=== PATIENT | male | born 1945 | race Caucasian/White ===

== ENCOUNTER 2018-12-08 05:45 | Inpatient (IN) | payer OTHER, MEDICAID ==
[~2018-12-08] VITALS: Ht 167.6 cm; Wt 71.7 kg
[2018-12-08] MEDS ORDERED: ONDANSETRON HCL 4MG/2ML INJ IV ONE (07:15)
[2018-12-08] MEDS ORDERED: MORPHINE SULFATE 4 MG/ML CPJ (NOT FOR IM USE) IV ONE ×2 (07:15→10:00)
[2018-12-08 07:23] LABS: BASOPHILS % 0.4 % (0.0-2.0); EOSINOPHILS % 2.8 % (0.0-5.0); HEMATOCRIT. 51.8 % (42.0-52.0); HEMOGLOBIN. 17.2 g/dL (14.0-18.0); LYMPHOCYTES % 8.9 % (20.0-50.0); MEAN CORPUSCULAR HEMOGLOBIN 29.9 pg (28.0-32.0); MEAN CORPUSCULAR VOLUME 90.2 fL (80.0-94.0); MEAN PLATELET VOLUME 7.8 fl (7.4-10.4); NEUTROPHILS % 78.9 % (40.0-76.0); PLATELET 353 x1000/uL (130-400); RED BLOOD CELL COUNT 5.75 mill/uL (4.7-6.1); RED CELL DISTRIBUTION WIDTH 14.5 % (11.6-14.6)
[2018-12-08 07:30] LABS: CHLORIDE 105 mEq/L (98-107)
[2018-12-08 10:13] LABS: CLARITY URINE CLEAR (CLEAR); COLOR URINE YELLOW (YELLOW); KETONES URINE NEGATIVE (NEGATIVE); LEUKOCYTE ESTERASE URINE TRACE (NEGATIVE); NITRITE URINE NEGATIVE (NEGATIVE); OCCULT BLOOD URINE NEGATIVE (NEGATIVE); PH URINE 5.5 (4.5-8.0); PROTEIN URINE NEGATIVE (NEGATIVE); SPECIFIC GRAVITY URINE 1.019 (1.005-1.030)
[2018-12-08] MEDS ORDERED: CLONIDINE 0.1MG TABLET PO PRN (11:00)
[2018-12-08] MEDS ORDERED: ACETAMINOPHEN 325MG TABLET PO PRN (11:00)
[2018-12-08] MEDS: SODIUM CHLORIDE 0.9% 1,000 ML IV SCH ×2 (12:12→22:31)
[2018-12-08] MEDS: MORPHINE SULFATE 2 MG/ML CPJ (NOT FOR IM USE) IV PRN (13:29)
[2018-12-08] MEDS ORDERED: SULFACETAMIDE SODIUM 10% OPHTH DROPS 15ML RIGHTEYE SCH (17:00)
[2018-12-08] MEDS: HYDROCODONE/ACETAMINOPHEN 5/325MG TABLET PO PRN (17:27)
[2018-12-08] MEDS: ONDANSETRON HCL 4MG/2ML INJ IV PRN (17:28)
[2018-12-08] MEDS ORDERED: LEVOFLOXACIN 500MG PREMIX 100 ML IV NR (17:30)
[2018-12-08] MEDS ORDERED: METRONIDAZOLE 500 MG PREMIX 100 ML IV NR (17:30)
[2018-12-08 21:00] VITALS: BP 149/83
[2018-12-08] MEDS ORDERED: AMLODIPINE 5MG TABLET PO SCH (21:00)
[2018-12-08] MEDS: CARVEDILOL 6.25 MG TABLET PO SCH (22:29)
[2018-12-08] MEDS: AMLODIPINE 2.5MG TABLET PO SCH (22:29)
[2018-12-08] MEDS: METRONIDAZOLE 500 MG PREMIX 100 ML IV SCH (22:30)
[2018-12-08] MEDS: QUETIAPINE FUMARATE 50MG TABLET PO SCH (22:30)
[2018-12-08] MEDS: SULFACETAMIDE SODIUM 10% OPHTH DROPS 15ML RIGHTEYE SCH (22:31)
[2018-12-09] VITALS: BP 125/67
[2018-12-09] MEDS: MORPHINE SULFATE 2 MG/ML CPJ (NOT FOR IM USE) IV PRN ×2 (00:44→05:10)
[2018-12-09 04:00] VITALS: BP 126/66
[2018-12-09] MEDS: METRONIDAZOLE 500 MG PREMIX 100 ML IV SCH ×2 (05:51→14:23)
[2018-12-09 06:58] LABS: CHLORIDE 104 mEq/L (98-107)
[2018-12-09 07:08] LABS: PHOSPHORUS 2.9 mg/dL (2.5-4.9)
[2018-12-09 07:17] LABS: BASOPHILS % 0.5 % (0.0-2.0); EOSINOPHILS % 2.6 % (0.0-5.0); HEMATOCRIT. 43.1 % (42.0-52.0); HEMOGLOBIN. 14.7 g/dL (14.0-18.0); LYMPHOCYTES % 11.1 % (20.0-50.0); MEAN CORPUSCULAR HEMOGLOBIN 30.6 pg (28.0-32.0); MEAN CORPUSCULAR VOLUME 89.6 fL (80.0-94.0); MEAN PLATELET VOLUME 8.1 fl (7.4-10.4); MONOCYTES % 11.7 % (2.0-8.0); NEUTROPHILS % 74.1 % (40.0-76.0); PLATELET 284 x1000/uL (130-400); RED BLOOD CELL COUNT 4.81 mill/uL (4.7-6.1)
[2018-12-09 08:00] VITALS: BP 154/67
[2018-12-09] MEDS: AMIODARONE HCL 200 MG TABLET PO SCH (08:25)
[2018-12-09] MEDS: HYDROCODONE/ACETAMINOPHEN 5/325MG TABLET PO PRN ×2 (08:25→18:25)
[2018-12-09] MEDS: AMLODIPINE 2.5MG TABLET PO SCH ×2 (08:25→21:01)
[2018-12-09] MEDS: CARVEDILOL 6.25 MG TABLET PO SCH ×2 (08:25→21:01)
[2018-12-09] MEDS: SULFACETAMIDE SODIUM 10% OPHTH DROPS 15ML RIGHTEYE SCH ×4 (08:26→21:02)
[2018-12-09 12:00] VITALS: BP 107/62
[2018-12-09] MEDS: LEVOFLOXACIN 250MG PREMIX 50 ML IV SCH (13:09)
[2018-12-09] MEDS: SODIUM CHLORIDE 0.9% 1,000 ML IV SCH (13:09)
[2018-12-09] MEDS ORDERED: LEVOFLOXACIN 500MG PREMIX 100 ML IV SCH (14:00)
[2018-12-09] MEDS: ONDANSETRON HCL 4MG/2ML INJ IV PRN (14:23)
[2018-12-09 16:00] VITALS: BP 132/67
[2018-12-09 20:00] VITALS: BP 147/78
[2018-12-09] MEDS: QUETIAPINE FUMARATE 50MG TABLET PO SCH (21:01)
[2018-12-10] VITALS: BP 123/64
[2018-12-10] MEDS: METRONIDAZOLE 500 MG PREMIX 100 ML IV SCH ×4 (01:15→22:18)
[2018-12-10 04:00] VITALS: BP 129/45
[2018-12-10 06:20] LABS: BASOPHILS % 0.7 % (0.0-2.0); EOSINOPHILS % 6.7 % (0.0-5.0); HEMATOCRIT. 38.6 % (42.0-52.0); HEMOGLOBIN. 13.2 g/dL (14.0-18.0); LYMPHOCYTES % 19.3 % (20.0-50.0); MEAN CORPUSCULAR HEMOGLOBIN 30.4 pg (28.0-32.0); MEAN CORPUSCULAR VOLUME 88.9 fL (80.0-94.0); MEAN PLATELET VOLUME 8.1 fl (7.4-10.4); MONOCYTES % 12.2 % (2.0-8.0); NEUTROPHILS % 61.1 % (40.0-76.0); PLATELET 310 x1000/uL (130-400); RED BLOOD CELL COUNT 4.34 mill/uL (4.7-6.1)
[2018-12-10 06:21] LABS: CHLORIDE 107 mEq/L (98-107)
[2018-12-10 06:35] LABS: PHOSPHORUS 2.9 mg/dL (2.5-4.9)
[2018-12-10 08:00] VITALS: BP 103/41
[2018-12-10] MEDS: CARVEDILOL 6.25 MG TABLET PO SCH ×2 (09:00→22:17)
[2018-12-10] MEDS: AMLODIPINE 2.5MG TABLET PO SCH (09:00)
[2018-12-10] MEDS: AMIODARONE HCL 200 MG TABLET PO SCH (09:13)
[2018-12-10] MEDS: SULFACETAMIDE SODIUM 10% OPHTH DROPS 15ML RIGHTEYE SCH ×4 (09:15→22:21)
[2018-12-10 12:00] VITALS: BP 145/67
[2018-12-10] MEDS: LEVOFLOXACIN 250MG PREMIX 50 ML IV SCH (12:50)
[2018-12-10 16:00] VITALS: BP 155/70
[2018-12-10 20:00] VITALS: BP 107/47
[2018-12-10] MEDS ORDERED: SERTRALINE HCL 25MG TABLET PO SCH (21:00)
[2018-12-10] MEDS: QUETIAPINE FUMARATE 25MG TABLET PO SCH (22:17)
[2018-12-10] MEDS: HYDROCODONE/ACETAMINOPHEN 5/325MG TABLET PO PRN (22:17)
[2018-12-11] VITALS: BP 104/57
[2018-12-11 04:00] VITALS: BP 129/69
[2018-12-11 06:33] LABS: BASOPHILS % 0.9 % (0.0-2.0); EOSINOPHILS % 5.9 % (0.0-5.0); HEMATOCRIT. 39.6 % (42.0-52.0); HEMOGLOBIN. 13.5 g/dL (14.0-18.0); LYMPHOCYTES % 16.2 % (20.0-50.0); MEAN CORPUSCULAR HEMOGLOBIN 30.3 pg (28.0-32.0); MEAN CORPUSCULAR VOLUME 88.8 fL (80.0-94.0); MEAN PLATELET VOLUME 7.8 fl (7.4-10.4); MONOCYTES % 12.3 % (2.0-8.0); NEUTROPHILS % 64.7 % (40.0-76.0); PLATELET 330 x1000/uL (130-400); RED BLOOD CELL COUNT 4.46 mill/uL (4.7-6.1); RED CELL DISTRIBUTION WIDTH 14.2 % (11.6-14.6)
[2018-12-11] MEDS: METRONIDAZOLE 500 MG PREMIX 100 ML IV SCH ×3 (06:33→21:33)
[2018-12-11 07:21] LABS: CHLORIDE 109 mEq/L (98-107)
[2018-12-11 08:00] VITALS: BP 149/72
[2018-12-11] MEDS: AMIODARONE HCL 200 MG TABLET PO SCH (08:35)
[2018-12-11] MEDS: SULFACETAMIDE SODIUM 10% OPHTH DROPS 15ML RIGHTEYE SCH ×4 (08:36→20:22)
[2018-12-11] MEDS: AMLODIPINE 2.5MG TABLET PO SCH (08:36)
[2018-12-11] MEDS: CARVEDILOL 6.25 MG TABLET PO SCH ×2 (08:41→20:19)
[2018-12-11 11:57] VITALS: BP 140/66
[2018-12-11] MEDS: LEVOFLOXACIN 250MG PREMIX 50 ML IV SCH (13:04)
[2018-12-11 15:52] VITALS: BP 126/65
[2018-12-11 20:00] VITALS: BP 142/73
[2018-12-11] MEDS: QUETIAPINE FUMARATE 25MG TABLET PO SCH (20:22)
[2018-12-12] VITALS: BP 136/68
[2018-12-12 04:00] VITALS: BP 147/77
[2018-12-12] MEDS: METRONIDAZOLE 500MG TABLET PO SCH ×2 (05:42→13:58)
[2018-12-12 07:48] LABS: HEMATOCRIT 42.4 % (42.0-52.0); HEMOGLOBIN 14.5 g/dL (14.0-18.0); MEAN CORPUSCULAR HEMOGLOBIN 30.5 pg (28.0-32.0); MEAN CORPUSCULAR VOLUME 89.2 fL (80.0-94.0); PLATELET 358 x1000/uL (130-400); RED BLOOD CELL COUNT 4.75 mill/uL (4.7-6.1); RED CELL DISTRIBUTION WIDTH 13.7 % (11.6-14.6)
[2018-12-12 08:00] VITALS: BP 148/72
[2018-12-12] MEDS: AMLODIPINE 2.5MG TABLET PO SCH (08:34)
[2018-12-12] MEDS: CARVEDILOL 6.25 MG TABLET PO SCH (08:34)
[2018-12-12] MEDS: AMIODARONE HCL 200 MG TABLET PO SCH (08:34)
[2018-12-12] MEDS: SULFACETAMIDE SODIUM 10% OPHTH DROPS 15ML RIGHTEYE SCH ×3 (08:34→16:22)
[2018-12-12] MEDS ORDERED: LISINOPRIL 2.5MG TABLET PO SCH (09:45)
[2018-12-12] MEDS ORDERED: LEVOFLOXACIN 250MG TABLET PO SCH (11:00)
[2018-12-12 12:00] VITALS: BP 102/53
[2018-12-12 16:00] VITALS: BP 142/62
[2018-12-12 17:58] VITALS: BP 142/62
[2018-12-12] MEDS ORDERED: CARVEDILOL 12.5MG TABLET PO SCH (21:00)
== END 2018-12-12 19:20 ==
LOC: ER 05:45 → ENRESERV 19:46 → 6EST 20:51
PROVIDERS: ADMIT Internal Medicine; ATTEND Internal Medicine
DX: K80.63 Calculus of gallbladder and bile duct with acute cholecystitis with obstruction (principal); N17.9 Acute kidney failure, unspecified; I13.0 Hypertensive heart and chronic kidney disease with heart failure and stage 1 through stage 4 chronic kidney disease, or unspecified chronic kidney disease; D75.1 Secondary polycythemia; F03.90 Unspecified dementia, unspecified severity, without behavioral disturbance, psychotic disturbance, mood disturbance, and anxiety; F20.9 Schizophrenia, unspecified; I50.9 Heart failure, unspecified; E78.5 Hyperlipidemia, unspecified; J44.9 Chronic obstructive pulmonary disease, unspecified; N18.3 Chronic kidney disease, stage 3 (moderate); F10.21 Alcohol dependence, in remission; F99 Mental disorder, not otherwise specified; H10.9 Unspecified conjunctivitis; H01.009 Unspecified blepharitis unspecified eye, unspecified eyelid; Z79.899 Other long term (current) drug therapy; I25.2 Old myocardial infarction; Z82.49 Family history of ischemic heart disease and other diseases of the circulatory system
CPT/HCPCS: 36415; 71045; 76705; 78227; 82247; 82248; 83036; 83735; 84100; 85027; 93005; 93306; 93970; 96365; 96366; 96375; 96376; 99285; A9537; J1956; J2270; J2405; J3490